=== PATIENT | male | born 1975 | race Caucasian/White ===

== ENCOUNTER 2017-04-15 02:47 | Inpatient (IN) | payer MEDICAID, OTHER ==
[2017-04-15] VITALS (7 sets, daily range): BP systolic 96–127; BP diastolic 47–65
[~2017-04-15] VITALS: Ht 185.4 cm; Wt 108.9 kg
[2017-04-15] MEDS ORDERED: IV NORMAL SALINE 1000 ML BAG IV ONE ×3 (03:00→06:15)
--- NOTE | 2017-04-15 03:00 | NUR ---
pt bib RA [id number] for syncope. pt [id number]. able to speak in complete and clear sentences and make needs known. pt in no acute distress. respirations even and unlabored.
[2017-04-15] MEDS ORDERED: VENTOLIN HFA 90 MCG INHALER (03:13)
[2017-04-15] MEDS ORDERED: ALBUTEROL SUL 2.5 MG/3 ML SOLN (03:13)
[2017-04-15 03:32] LABS: BASOPHILS % (AUTO) 0.7 % (0.0-2.0); EOSINOPHILS # (AUTO) 0.1 K/uL (0.0-0.7); EOSINOPHILS % (AUTO) 2.5 % (0.0-7.0); HEMATOCRIT 43.4 % (36.7-47.1); HEMOGLOBIN 14.5 g/dL (12.5-16.3); LYMPHOCYTES # (AUTO) 1.6 K/uL (20.0-40.0); LYMPHOCYTES % (AUTO) 37.3 % (20.5-51.5); MEAN CORPUSCULAR HGB CONC 34 g/dL (32.5-36.3); MEAN CORPUSCULAR VOLUME 95.6 fL (73.0-96.2); MONOCYTES # (AUTO) 0.4 K/uL (2.0-10.0); NEUTROPHILS # (AUTO) 2.1 K/uL (1.8-8.9); NEUTROPHILS % (AUTO) 49.5 % (38.5-71.5); PLATELET COUNT (AUTO) 263 K/uL (152-348); RED BLOOD CELL COUNT(AUTO) 4.54 MIL/uL (4.06-5.63); WHITE BLOOD COUNT (AUTO) 4.3 K/uL (3.6-10.2)
[2017-04-15 03:40] LABS: BILIRUBIN,DIRECT 0.1 mg/dL (0.0-0.2); BILIRUBIN,TOTAL 0.4 mg/dL (0.2-1.0); CREATININE 1.3 mg/dL (0.6-1.3); POTASSIUM 3.3 mmol/L (3.5-5.1); TOTAL PROTEIN, SERUM 6.4 g/dL (6.4-8.2)
--- NOTE | 2017-04-15 03:43 | NUR ---
PT BEING TAKEN DOWN TO RADIALOGY FOR CT VIA STRETCHER. IN NO ACUTE DISTRESS.
[2017-04-15] MEDS ORDERED: POTASSIUM BICARBONATE/CIT AC 25 MEQ TABLET.EFF PO ONE (04:30)
[2017-04-15 04:32] LABS: *BILIRUBIN,URIN NEGATIVE (NEGATIVE); *BLOOD, URINE 2+ (NEGATIVE); *CLARITY,URINE CLEAR (CLEAR); *COLOR,URINE YELLOW (YELLOW); *KETONES,URINE NEGATIVE (NEGATIVE); *PROTEIN,URINE 1+ (NEGATIVE); *UROBILINOGEN,URINE 0.2 E.U./dl (NORMAL); LEUKOCYTE ESTERASE ,URINE NEGATIVE (NEGATIVE); NITRITE, URINE NEGATIVE (NEGATIVE); PH,URINE 6.5 (5.0-8.0); UGLUCOSE NEGATIVE (NEGATIVE)
[2017-04-15 04:43] LABS: BACTERIA,URINE NONE SEEN /HPF (NONE SEEN); RBC,URINE 50-80 /HPF (0-3); SQUAMOUS EPITHELIAL CELL,UR NONE SEEN /HPF (NONE SEEN); WBC,URINE 0-3 /HPF (0-3)
[2017-04-15 04:44] LABS: MUCUS,URINE FEW /LPF (0-FEW)
[2017-04-15] MEDS ORDERED: HYDROCORTISONE SOD SUCCINATE 100 MG/2 ML VIAL IV ONE ×2 (05:00→05:20)
[2017-04-15] MEDS ORDERED: LEVOFLOXACIN 750 MG/D5W 150 ML PIGGYBACK IV ONE (05:00)
[2017-04-15] MEDS ORDERED: POTASSIUM BICARBONATE/CIT AC 25 MEQ TABLET.EFF ONE (05:11)
[2017-04-15] MEDS ORDERED: LEVOFLOXACIN 750MG/D5W 150 ML IV ONE (05:20)
--- NOTE | 2017-04-15 05:40 | NUR ---
pt brought up from radiology via stretcher. in no acute distress.
--- NOTE | 2017-04-15 06:07 | NUR ---
call received from lab, lactic acid level 2.1. ER made aware.
[2017-04-15] MEDS ORDERED: ALBU18HF2 INH (06:24)
[2017-04-15] MEDS ORDERED: ALBUTEROL INH (06:24)
[2017-04-15] MEDS ORDERED: FLUT1DIS28 IH (06:24)
--- NOTE | 2017-04-15 07:01 | NUR ---
LAST 400ML STARTED. Addendum: 04/15/17 at 0701 by YOSSI LAST 400ML OF NS STARTED
--- NOTE | 2017-04-15 07:08 | NUR ---
total of volume infused 3400mL per ER MD order.
--- NOTE | 2017-04-15 07:26 | NUR ---
pt endorsed to Lachelle CERRATO day shift nurse.
--- NOTE | 2017-04-15 07:31 | NUR ---
Report received from SAQIB Ingram.Pt remains awake,alert,oriented.Denies pain,discomfort.C/O lightheadedness.SR on monitor.Respiration even,unlabored.No SOB noted.Awaiting for transport to CCU.
--- NOTE | 2017-04-15 07:59 | NUR ---
Report given to SAQIB Buck.
[2017-04-15] MEDS ORDERED: ACETAMINOPHEN 325 MG TABLET PO PRN (08:00)
[2017-04-15] MEDS ORDERED: HYDROCODONE/APAP 5-325MG TABLET PO PRN (08:00)
[2017-04-15] MEDS ORDERED: ONDANSETRON 4 MG/2 ML VIAL IV PRN (08:00)
[2017-04-15] MEDS ORDERED: POTASSIUM CHLORIDE 20 MEQ in IV NS 1000 ML 1,000 ML IV PRN (08:00)
[2017-04-15] MEDS ORDERED: FLUTICASONE/SALMETEROL 250/50 INHALER IH SCH (09:00)
[2017-04-15] MEDS ORDERED: IPRATROPIUM BROMIDE 0.5 MG/2.5 ML NEBU NEB PRN (12:30)
[2017-04-15] MEDS ORDERED: ALBUTEROL SULFATE 2.5 MG/ 0.5 ML NEBU NEB PRN (12:30)
[2017-04-15] MEDS ORDERED: POTASSIUM CHLORIDE 20 MEQ TAB.PRT.SR PO ONE (12:30)
[2017-04-15] MEDS: IV NS 1000 ML 1,000 ML IV PRN (14:32)
[2017-04-15] MEDS: FLUTICASONE/VILANTEROL 1 EACH BLST.W.DEV INH SCH (16:16)
--- NOTE | 2017-04-15 17:30 | NUR ---
Patient adm to ccu, GIANLUCA status adm to Room #5 , DiAGNOSIS of syncopal episode. c/o funny feeling in his head with standing. Arrival on unit via wheel chair at 0820 am 04/15/17,
--- NOTE | 2017-04-15 17:45 | NUR ---
Notified Cindy Mao NP of patient c/o of abd discomfort after eating dinner. [place] heart burn, normally take tums at home, CT of chest ordered to r/o dissection. Afebrile
[2017-04-15 18:09] LABS: *AMPHETAMINE, URINE NEGATIVE (NEGATIVE); *BARBITURATE, URINE NEGATIVE (NEGATIVE); *CANNABINOID, URINE POSITIVE (NEGATIVE); *COCCAINE, URINE NEGATIVE (NEGATIVE); *OPIATE, URINE POSITIVE (NEGATIVE); *PHENCYCLIDINE SCREEN,URINE NEGATIVE (NEGATIVE)
--- NOTE | 2017-04-15 20:00 | NUR ---
Pt in CCU as GIANLUCA status. Alert, spirits improved, states feeling better. Spouse at bedside. Seen and evaluated by Angela Mao and spoke with pt and spouse about care plans. Please see CCU flowsheet for full assessment and clinical data.
[2017-04-16] VITALS (9 sets, daily range): BP systolic 99–118; BP diastolic 61–83
[2017-04-16] MEDS: IV NS 1000 ML 1,000 ML IV PRN (03:21)
[2017-04-16 05:30] LABS: BASOPHILS % (AUTO) 0.9 % (0.0-2.0); EOSINOPHILS # (AUTO) 0.1 K/uL (0.0-0.7); EOSINOPHILS % (AUTO) 1.5 % (0.0-7.0); HEMATOCRIT 40.2 % (36.7-47.1); HEMOGLOBIN 13.8 g/dL (12.5-16.3); LYMPHOCYTES # (AUTO) 1.8 K/uL (20.0-40.0); LYMPHOCYTES % (AUTO) 35.5 % (20.5-51.5); MEAN CORPUSCULAR HEMOGLOBIN 32.5 uug (23.8-33.4); MEAN CORPUSCULAR HGB CONC 34 g/dL (32.5-36.3); MEAN CORPUSCULAR VOLUME 95.1 fL (73.0-96.2); MONOCYTES # (AUTO) 0.5 K/uL (2.0-10.0); MONOCYTES % (AUTO) 9.8 % (0.0-11.0); NEUTROPHILS # (AUTO) 2.6 K/uL (1.8-8.9); NEUTROPHILS % (AUTO) 52.3 % (38.5-71.5); PLATELET COUNT (AUTO) 212 K/uL (152-348); RED BLOOD CELL COUNT(AUTO) 4.23 MIL/uL (4.06-5.63)
[2017-04-16 05:33] LABS: BILIRUBIN,TOTAL 0.6 mg/dL (0.2-1.0); CREATININE 0.9 mg/dL (0.6-1.3); POTASSIUM 3.4 mmol/L (3.5-5.1); TOTAL PROTEIN, SERUM 5.6 g/dL (6.4-8.2)
[2017-04-16 05:58] LABS: MAGNESIUM 1.7 mg/dL (1.8-2.4)
[2017-04-16] MEDS ORDERED: LEVOFLOXACIN 750MG/D5W 750 MG in PREMIXED 1 EACH IV SCH (06:00)
--- NOTE | 2017-04-16 06:00 | NUR ---
Restful night, able to sleep. Stable VS, at times sinus brenda as low as 45/min. Loud snoring noted with sats going down to low 90's with this. Close observation ongoing. Please see CCU flowsheet for trends and clinical data.
[2017-04-16] MEDS ORDERED: PANTOPRAZOLE SODIUM 40 MG TABLET.DR PO SCH (07:00)
--- NOTE | 2017-04-16 07:30 | NUR ---
Pt.in bed A/A/O no s/s of distress,denies pain @ time.
[2017-04-16] MEDS: FLUTICASONE/VILANTEROL 1 EACH BLST.W.DEV INH SCH (08:58)
--- NOTE | 2017-04-16 09:30 | NUR ---
field radio technician at bedside.
--- NOTE | 2017-04-16 10:00 | NUR ---
PT TRANSFERRED FROM CCU, REPORT RECEIVED BY RN. PT ARRIVED WITH NO SIGNS OF RESPIRATORY DISTRESS, PT ON TELE, IV INTACT, AOX4, ORIENTED TO THE UNIT.BED AT LOWEST LOCKED POSITION.CONTINUE TO MONITOR.
[2017-04-16] MEDS ORDERED: LEVO500T2 PO (11:48)
[2017-04-16] MEDS ORDERED: POTASSIUM CHLORIDE 20 MEQ TAB.PRT.SR PO ONE (12:00)
[2017-04-16] MEDS: MAGNESIUM SULFATE/D5W 100 ML IV SCH ×2 (15:02→16:14)
--- NOTE | 2017-04-16 16:00 | NUR ---
PT IS CALM, COOPERATIVE, NO SIGNS OF RESPIRATORY DISTRESS. PT C/O WELCH 05/13. PT PROVIDED DARK ROOM AND QUIET ENVIRONMENT. PT REFUSED TYLENOL . AT BEDSIDE TODAY.
--- NOTE | 2017-04-16 19:14 | NUR ---
PT D/C WITH ALL BELONGINGS, VALUABLES, PRESCRIPTIONS, AND EXIT-CARE PACKET. PT IS STABLE TO D/C, CALM, COOPERATIVE, WILL BE GOING HOME WITH . CLEARED BY CARDIAC MD.
--- NOTE | 2017-04-16 19:20 | NUR ---
IV REMOVED, PT VOIDED DURING SHIFT, ID BAND REMOVED. PT STABLE TO D/C.
== END 2017-04-16 19:15 | disposition home or self-care (01) | DRG 139 ==
LOC: ER 02:53 → CCU 08:04 → TELE 04-16 10:07
PROVIDERS: ADMIT Internal Medicine; ATTEND Nurse Practitioner Acute Care
DX: J15.9 Unspecified bacterial pneumonia (principal); E87.2 Acidosis; E86.0 Dehydration; R55 Syncope and collapse; J45.909 Unspecified asthma, uncomplicated; M06.9 Rheumatoid arthritis, unspecified; M47.812 Spondylosis without myelopathy or radiculopathy, cervical region; Z79.899 Other long term (current) drug therapy; J98.11 Atelectasis; E87.6 Hypokalemia
CPT/HCPCS: 36415; 70030-TC; 70450; 71045; 72125; 80307; 82533; 83605; 83690; 83735; 84100; 84443; 85025; 85730; 87040; 93005; 93307; 93880; 94664; A4663; J1720; J1956; J3475; J3480; J7030

== ENCOUNTER 2017-11-08 15:33 | Emergency (ER) | payer MEDICAID, OTHER ==
[~2017-11-08] VITALS: Ht 182.9 cm; Wt 115.7 kg
[~2017-11-08 15:33] MED LIST: ALBU18HF2 INH; ALBUTEROL INH; FLUT1DIS28 IH; LEVO500T2 PO
[2017-11-08] MEDS ORDERED: CYCLOBENZAPRINE HCL 10 MG TABLET PO ONE (16:30)
[2017-11-08] MEDS ORDERED: KETOROLAC TROMETHAMINE 30 MG INJ IM ONE (16:30)
[2017-11-08] MEDS ORDERED: CYCLOBENZAPRINE HCL 10 MG TABLET ONE (16:37)
[2017-11-08] MEDS ORDERED: KETOROLAC TROMETHAMINE 30 MG INJ ONE (16:39)
[2017-11-08 16:42] VITALS: BP 126/73
--- NOTE | 2017-11-08 16:47 | NUR ---
Patient discharged to home in stable conditon. Written and verbal after care instructions given. Patient verbalizes understanding of instructions.
== END 2017-11-08 16:50 | disposition home or self-care (01) ==
LOC: ER 15:35
DX: S29.012A Strain of muscle and tendon of back wall of thorax, initial encounter (principal); J45.909 Unspecified asthma, uncomplicated; Z88.1 Allergy status to other antibiotic agents; X50.0XXA Overexertion from strenuous movement or load, initial encounter; Y93.89 Activity, other specified; Y92.89 Other specified places as the place of occurrence of the external cause; Y99.8 Other external cause status
CPT/HCPCS: 96372; 99283; A4663; J1885